=== PATIENT | female | born 2000 | race American Indian/Alaskan Native ===

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

== ENCOUNTER 2018-01-04 15:46 | Emergency (ER) | payer MEDICAID ==
--- NOTE | 2018-01-04 19:56 | Emergency Department Report ---
Suture/Staple Removal - HPI Chief Complaint: Laceration/Recheck/Suture Stated Complaint: STITCH REMOVAL Time Seen by Provider: 01/04/18 19:22 When Sutures or Es Placed: October 13 2017 Wound Location: right anterior knee and medial aspect of the lower leg ED Review of Systems ROS: Stated complaint: STITCH REMOVAL Other details as noted in HPI Constitutional: denies: chills, fever Eyes: denies: eye pain, eye discharge, vision change ENT: denies: ear pain, throat pain Respiratory: denies: cough, shortness of breath, wheezing Cardiovascular: denies: chest pain, palpitations Endocrine: no symptoms reported Gastrointestinal: denies: abdominal pain, nausea, diarrhea Genitourinary: denies: urgency, dysuria, discharge Musculoskeletal: denies: back pain, joint swelling, arthralgia Skin: denies: rash, lesions Neurological: denies: headache, weakness, paresthesias Psychiatric: denies: anxiety, depression Hematological/Lymphatic: denies: easy bleeding, easy bruising ED Past Medical Hx - Past Medical History Hx Psychiatric Treatment: Yes (Schizophrenia, Bipolar, ADHD) Hx Asthma: Yes Additional medical history: bipolar schizophrenia - Social History Smoking Status: Never Smoker Substance Use Type: None - Medications Home Medications: Home Medications Medication Instructions Recorded Confirmed Last Taken Type Docusate Sodium [Colace] 100 mg PO BID PRN 05/30/13 05/15/17 Unknown History Benztropine [Cogentin] 0.5 mg PO QHS 12/10/16 05/15/17 Unknown History Paliperidone Palmitate(Nf) [Invega 234 mg IM QMONTH 03/06/17 05/15/17 Unknown History Sustenna] QUEtiapine [SEROquel] 400 mg PO QHS 03/06/17 05/15/17 Unknown History ALBUTEROL Inhaler [Proair] 2 puff IH QID PRN 05/15/17 05/15/17 Unknown History Atomoxetine HCl [Strattera] 60 mg PO QDAY 05/15/17 05/15/17 Unknown History Benztropine [Cogentin] 0.5 mg PO QHS #5 tablet 05/15/17 Unknown Rx Bupropion HCl [Wellbutrin XL] 300 mg PO QAM 05/15/17 05/15/17 Unknown History Bupropion HCl [Wellbutrin XL] 300 mg PO QAM #14 tab.er.24h 05/15/17 Unknown Rx Flunisolide [Aerospan] 8.9 gm IH BID 05/15/17 05/15/17 Unknown History Fluticasone [Flonase] 05/15/17 Unknown History Omeprazole 20 mg PO DAILY 05/15/17 05/15/17 Unknown History Quetiapine Fumarate [SEROquel XR] 400 mg PO QHS #14 tab.er.24h 05/15/17 Unknown Rx Suture Removal Exam - Exam General: Vital signs noted. No distress. Alert and acting appropriately. Wound: No Pathologic Erythema, No Tenderness, No Drainage, No Pus, No Wound Dehiscence Other Systems: All other systems reviewed and are unremarkable. ED Course Vital Signs 01/04/18 15:58 Temperature 98.6 F Pulse Rate 94 H Respiratory 18 Rate Blood Pressure 127/67 O2 Sat by Pulse 100 Oximetry ED Recheck MDM - Medical Decision Making 17-year-old female presents status post surgery for stitches removal from over 2 months ago. I discussed the patient states that she's had this stitches in for over 2 months and have degraded into her healed scars. I discussed the patient she will need to follow up with [facility] who did the surgery and see about taking them out. She is discussed to see a surgeon to have them removed. sutures were barely visible Patient is no acute distress Referral is given. Critical care attestation.: If time is entered above; I have spent that time in minutes in the direct care of this critically ill patient, excluding procedure time. ED Disposition Clinical Impression: Encounter for removal of sutures Disposition: - TO HOME OR SELFCARE Is pt being admited?: No Does the pt Need Aspirin: No Condition: Stable Instructions: Suture Removal (ED) Additional Instructions: Make sure to follow up with the primary care physician as discussed. You have to follow up with your surgeon at [facility] or any other surgery to see about having stitches removed. You have been given referrals for surgery If you have any worsening symptoms or develop new symptoms please return to ED immediately. Referrals: PRIMARY CARE, [Primary Care Provider] - 3-5 Days [facility] [Provider Group] - 3-5 Days [facility] [Provider Group] - 3-5 Days Forms: Accompanied Note, Work/School Release Form(ED) Time of Disposition: 20:00
[2018-01-04 20:38] VITALS: BP 116/74
== END 2018-01-04 20:22 | disposition home or self-care (01) ==
LOC: ED 15:46
DX: Z48.02 Encounter for removal of sutures (principal)